=== PATIENT | male | born 1955 | race Caucasian/White ===

== ENCOUNTER 2024-11-14 13:16 | Outpatient (CLI) | payer BC, SELFPAY ==
--- NOTE | ~2024-11-14 | XR_ITS ---
HISTORY: M25.511 - Pain in right shoulder, limited rom, injury COMPARISON: None TECHNIQUE: 2 views of the right shoulder were performed FINDINGS: No acute fracture. The glenohumeral and acromioclavicular joint space is maintained The visualized portion of the adjacent right lung is clear. The humeral head is well seated within the glenoid fossa. IMPRESSION: No acute fracture or anterior dislocation. Reviewed, dictated and finalized at location A. LINE GANG SUPERVISOR
== END 2024-11-14 13:17 | disposition home or self-care (01) ==
LOC: ANHIMG 13:19
PROVIDERS: PCP Family Medicine; Visit Provider Physician Assistant
DX: M25.511 Pain in right shoulder (principal); V18.2XXA Unspecified pedal cyclist injured in noncollision transport accident in nontraffic accident, initial encounter
CPT/HCPCS: 73030

== ENCOUNTER 2025-10-30 06:02 | Outpatient (CLI) | payer BC, SELFPAY ==
--- NOTE | ~2025-10-30 | XR_ITS ---
EXAMINATION: XR chest 2V, 10/30/2025 10:50 HAND DEVELOPER HISTORY: R05.9 - Cough, unspecified, X MID NOV COMPARISON: No comparisons available. Technique: 2 views obtained. Findings: The lungs are clear, no effusion. No pneumothorax. Heart is normal size. Mediastinal and hilar contours are within normal limits. Bony thorax no acute abnormality. Impression: No acute cardiopulmonary abnormality. Reviewed, dictated and finalized at location P. DEVELOPER Impression: No acute cardiopulmonary abnormality.
--- NOTE | ~2025-10-30 | XR_ITS ---
EXAMINATION: XR knee RT 3V, 10/30/2025 10:50 SALES COACH HISTORY: R05.9 - Cough, unspecified NKI COMPARISON: No comparisons available. Findings: No acute fracture or malalignment. No significant degenerative changes. Soft tissues unremarkable. Impression: No acute fracture or malalignment. Reviewed, dictated and finalized at location P. S COACH Impression: No acute fracture or malalignment.
--- OUTSIDE RECORDS SUMMARY | 2025-10-30 11:17 | XMS_ITS | Patient Health Record ---
Author Organization [facility] [employer] [facility] Address [address] [facility] [address] [place] [address] Care Team Providers Care Traffic Manager Name Role Phone Amado Mcfadden MD Primary Care Provider Ezra Oliver Unavailable [phone] Allergies No Known Allergies Reason For Referral No Information Medications Medication SIG (Take, Route, Frequency, Duration) Notes Start Date End Date Status Lisinopril 20 MG Tablet Oral 03/29/2024 Active Nortriptyline HCl 50 MG Capsule 1 capsul e every night Orally Once a day; Duration: 90 days Active Nortriptyline HCl 50 mg Capsule TAKE 1 C APSULE DAILY EVERY NIGHT Active FLUoxetine HCl 20 MG Capsule 3 capsule O ral Once a day; Duration: 90 days Active Atorvastatin Calcium 20 MG Tablet Oral 03/29/2024 Active hydroCHLOROthiazide 25 MG Tablet Oral 03/29/2024 Active Immunizations Vaccine Route Administration Date Status Comme nts Hep A, Adult Unknown 01/23/2020 Administered Influenza virus vaccine, quadrivalent (IIV4), split virus, 0.25 mL dosage Unknown 08/20/2014 Administered Influenza virus vaccine, quadrivalent (IIV4), split virus, 0.25 mL dosage Unknown 08/05/2015 Administered Influenza virus vaccine, quadrivalent (IIV4), split virus, 0.25 mL dosage Unknown 07/26/2016 Administered Influenza, injectable, MDCK, preservative free Unknown 08/07/2019 Administered Novel [id number], preservative free Unknown 09/05/2017 Administered Novel [id number]-[id number], preservative free Unknown 08/12/2018 Administered Novel Sldsudryw-[id number], preservative free Unknown 08/05/2020 Administered Pfizer Biontech Covid-19 Vac cine 2nd dose Unknown 02/09/2021 Administered Pfizer [employer] Covid-19 Vac cine 2nd dose Unknown 03/10/2021 Administered Pfizer Bion[employer] Covid-19 Vac cine 2nd dose Unknown 11/08/2021 Administered Tdap Unknown 01/23/2020 Administered Social History Tobacco Use: Social History Observation Description Date Details (start date - stop date) Never Smoker NA - NA Sex Assigned At : Social History Observation Description Sex Assigned At Male Social History Miscellaneous: Social Info Question Answer Notes Advance Care Planning Are you your own decision-maker Yes Do you have Power of Water Commissioner for Health or [facility]? No Social History Social Info Question Answer Notes Household: Marital Status: Single Number of Adults in household: 1 Number of Children in Household: 0 Drug/Alcohol: Social Info Question Answer Notes AUDIT-C (Standard) Did you have a drink containing alcohol in the past year? Yes How many drinks did you have on a typical day when you were drinking in the past year? 1 or 2 drinks (0 point) How often did you have a drink containing alcohol in the past year? Monthly or less (1 point) Tobacco Use: Social Info Question Answer Notes Tobacco Control (Standard) Tobacco use: Nonsmoker Additional Details Category Social Info Options Details Migrated Social History Migrated Social History Alcohol Intake: None 03/31/2023,Tobacco Years: Never smoker 06/20/2019,Smoking Status: 0 04/05/2023 Problems Problem Type SNOMED Code ICD Code Onset Dates Problem Status W/U Status Risk Notes Problem Major depression, single episode, in complete remission ([id number]) Major depressive disorder, single episode, in full remission (F32.5) Active confirmed Problem Generalized anxiety disorder (37952421) Generalized anxiety disorder (F41.1) Active confirmed Vital Signs Heart Rate 76 /min 04/22/2025 Height-cm 175.26 cm 04/22/2025 Blood pressure diastolic 78 mm Hg 04/22/2025 Weight-kg 100.7 kg 04/22/2025 Height 69.00 in 04/22/2025 Blood pressure systolic 122 mm Hg 04/22/2025 Weight 222 lbs 04/22/2025 BMI 32.78 kg/m2 04/22/2025 Encounters Encounter Location Date Provider Diagnosis [facility] [employer] [facility] [address] [place] [address] 04/22/2025 Ezra Cherry Negative depression screening Z13.31 ; Encounter for screening for cardiovascular disorders Z13.6 ; Major depressive disorder, single episode, in full remission F32.5 and Generalized anxiety disorder F41.1 [facility], [facility] [address] [place] [address] 11/28/2024 Ezra Cherry Major depressive disorder, single episode, in full remission F32.5 [facility], [facility] [address] [place] [address] 11/16/2024 Ezra Cherry [facility], [facility] [address] [place] [address] 11/26/2024 Ezra Cherry [facility], [facility] [address] [place] [address] 12/02/2024 [facility], [facility] [address] [place] [address] 12/02/2024 Ezra Cherry [facility], [facility] [address] [place] [address] 12/02/2024 Ezra Cherry Major depressive disorder, single episode, in full remission F32.5 [facility], [facility] [address] [place] [address] 12/02/2024 Ezra Cherry Major depressive disorder, single episode, in full remission F32.5 [facility], [facility] [address] [place] [address] 01/04/2025 Ezra Cherry [facility], [facility] [address] [place] [address] 01/06/2025 Ezra Cherry [facility], [facility] [address] [place] [address] 01/06/2025 Ezra Cherry [facility], [facility] [address] [place] [address] 01/07/2025 Ezra Cherry [facility], [facility] [address] [place] [address] 01/07/2025 Ezra Cherry [facility], [facility] [address] [place] [address] 01/08/2025 Ezrawood Shanksoza [facility] [employer] [facility] [address] [place] [address] 04/28/2025 Ezrawood Shanksoza Major depressive disorder, single episode, in full remission F32.5 [facility] [employer] [facility] [address] [place] [address] 09/04/2025 Ezrawood Mathewsa Assessments Encounter Date Diagnosis (ICD Code) Assessment Notes Treatment Notes Treatment Clinical Notes Section Notes 11/28/2024 Major depressive disorder, single episode, in full remission (ICD-10 - F32.5) 12/02/2024 Major depressive disorder, single episode, in full remission (ICD-10 - F32.5) 12/02/2024 Major depressive disorder, single episode, in full remission (ICD-10 - F32.5) 04/22/2025 Negative depression screening (ICD-10 - Z13.31) 04/28/2025 Major depressive disorder, single episode, in full remission (ICD-10 - F32.5) 04/22/2025 Encounter for screening for cardiovascular disorders (ICD-10 - Z13.6) 04/22/2025 Major depressive disorder, single episode, in full remission (ICD-10 - F32.5) 04/22/2025 Generalized anxiety disorder (ICD-10 - F41.1) stable 04/22/2025 Cora Moreira, a patient with a history of major depression for over 40 years, presents for medication management and 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 Major Depressive Disorder Assessment: Patient reports stable control of depression symptoms with current medication regimen. No recent exacerbations or side effects reported. Long-term history of successful management with current medications. Plan: - Continue fluoxetine 20 mg PO TID - Continue nortriptyline at bedtime - Follow up as scheduled Anxiety Assessment: Patient reports stable control of anxiety symptoms with current medication regimen. No recent exacerbations or side effects reported. 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 No reported episodes of unconsciousness in the past 6 months. Compliant with prescribed medications and symptoms are well-controlled. 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 It is a reflection of a visit with the patient. It might have some inaccuracy, including medication names and transcribing errors, though efforts have been made to correct them. Plan Of Treatment Next Appt Details Provider Name:Ezra Lucila Shanksblank [place], 04/21/2026 01:00:00 PM, [address] [facility] [address], [facility] [address], [place], [address], Insurance Providers Payer Name Payer Address Payer Phone Subscriber Number Group Number Insured Name Patient Relationship to Insured Coverage Start Date Coverage End Date [facility] [address] [place] [address] [id number] MONSE MOREIRA Self - patient is the insured Medical (General) History Medical History History ICD Code Problems: Generalized anxiety disorder Major depression in full remission , Past Psychiatric History: Major Depressi ve Episode Surgical History Surgery Date(Month/Year) Reconstructive surgery Any surgical history Other 10/12/1993
== END 2025-10-30 10:31 | disposition home or self-care (01) ==
PROVIDERS: PCP Family Medicine
DX: R05.9 Cough, unspecified (principal); M25.561 Pain in right knee
CPT/HCPCS: 71046; 73562